=== PATIENT | female | born 1995 | race Caucasian/White ===

== ENCOUNTER 2019-04-18 10:30 | Emergency (ER) | payer OTHER ==
[~2019-04-18] VITALS: Ht 157.5 cm; Wt 48.0 kg
[2019-04-18] MEDS ORDERED: HYDROCODONE/ACETAMINOPHEN 5/325MG TABLET PO ONE (11:45)
[2019-04-18] MEDS ORDERED: ACETAMINOPHEN 325MG TABLET PO ONE (12:15)
[2019-04-18 12:24] VITALS: BP 125/86
== END 2019-04-18 12:24 | disposition home or self-care (01) ==
LOC: ER 10:30
DX: R51 Headache (principal); H53.8 Other visual disturbances; M54.2 Cervicalgia; Y08.89XA Assault by other specified means, initial encounter; Y93.89 Activity, other specified; Y92.89 Other specified places as the place of occurrence of the external cause; Y99.8 Other external cause status
CPT/HCPCS: 81025; 99283